=== PATIENT | male | born 1950 | race Caucasian/White ===

== ENCOUNTER 2018-02-03 18:01 | Emergency (ER) | payer MEDICARE ==
[~2018-02-03] VITALS: Ht 170.2 cm; Wt 73.5 kg
[2018-02-03 18:11] VITALS: Ht 170.2 cm; Wt 73.5 kg
[2018-02-03 19:12] VITALS: BP 152/71
== END 2018-02-03 19:12 | disposition home or self-care (01) ==
LOC: ED 18:01
DX: K40.90 Unilateral inguinal hernia, without obstruction or gangrene, not specified as recurrent (principal)